=== PATIENT | male | born 1965 | race Caucasian/White ===

== ENCOUNTER → 2019-11-29 08:30 | Outpatient (CLI) | payer OTHER, SELFPAY ==
--- NOTE | ~2019-11-29 | XR_ITS ---
EXAMINATION: XR lumbar spine 2-3V DATE: 11/29/2019 08:45 INDICATION: Dorsalgia, unspecified. TECHNIQUE: 3 views of lumbar spine were obtained. COMPARISON: Lumbar spine radiographs 02/27/2009 FINDINGS: There is 4 degrees levocurvature of lumbar spine. Vertebral body heights are normal. There is mildly decreased disc height at L5-S1. There are small endplate osteophytes at most levels. There is mild facet joint osteoarthritis in lower lumbar spine. IMPRESSION: 1. Mild lumbar spondylosis. Reviewed, dictated and finalized at location B. IMPRESSION: 1. Mild lumbar spondylosis.
== END ==
PROVIDERS: PCP Family Medicine; Visit Provider Physician Assistant
DX: M54.9 Dorsalgia, unspecified (principal); M47.816 Spondylosis without myelopathy or radiculopathy, lumbar region
CPT/HCPCS: 72100

== ENCOUNTER → 2021-07-31 13:49 | Outpatient (CLI) | payer BC, SELFPAY ==
--- NOTE | ~2021-07-31 | MR_ITS ---
EXAMINATION: MR lumbar spine wo con DATE: 07/31/2021 14:18 INDICATION: Lumbar radiculopathy. Low back pain. Left leg pain. TECHNIQUE: Magnetic resonance imaging (MRI) of the lumbar spine was performed without intravenous con trast. Sequences included sagittal T2-weighted FSE, sagittal T2-weighted FS FSE, sagittal T1-weighted FSE, and axial T2-weighted FSE. COMPARISON: Lumbar spine radiographs 07/31/2021 FINDINGS: Bone alignment is normal. Vertebral body heights are normal. There is mildly decreased disc height at L5-S1 with endplate remodeling. The distal spinal cord signal intensity is normal. The con us medullaris is at L1. The following disc levels are specifically discussed: L1-L2: The disc does not extend beyond the endplate margin. There is mild bilateral facet joint osteo arthritis. There is no neural foraminal stenosis. There is no central canal stenosis. L2-L3: The disc does not extend beyond the endplate margin. There is mild bilateral facet joint osteo arthritis. There is no neural foraminal stenosis. There is no central canal stenosis. L3-L4: There is a left foraminal protrusion. There is mild bilateral facet joint osteoarthritis. Ther e is mild left neural foraminal stenosis. There is no central canal stenosis. L4-L5: The disc is bulging and has an annular fissure. There is moderate right and severe left facet joint osteoarthritis. There is moderate right and mild left neural foraminal stenosis. There is mild central canal stenosis. L5-S1: The disc is bulging with superimposed left subarticular zone extrusion with mass effect on lef t S1 nerve root in left lateral recess. There is moderate bilateral facet joint osteoarthritis. There is moderate bilateral neural foraminal stenosis. There is mild central canal stenosis. There is kerrie re stenosis of left lateral recess. IMPRESSION: 1. Moderate lower lumbar spondylosis. Of note, an extrusion at L5-S1 exerts mass effect on left S1 ne rve root. Reviewed, dictated and finalized at location A. IMPRESSION: 1. Moderate lower lumbar spondylosis. Of note, an extrusion at L5-S1 exerts mas s effect on left S1 nerve root.
--- NOTE | ~2021-07-31 | XR_ITS ---
EXAMINATION: XR lumbar spine 6V w bending DATE: 07/31/2021 14:49 INDICATION: Lumbar radiculopathy TECHNIQUE: Anteroposterior, lateral in neutral, flexion and extension, and bilateral oblique views of the lumbar spine, and cone-down lateral view of the lumbosacral junction were obtained. COMPARISON: 11/29/2019 FINDINGS: There is mild/moderate loss of intervertebral disc space height at L5-S1. The vertebral bod y heights are normal. There is no fracture. Bone alignment is normal. No laxity is present with flexi on or extension. There is moderate facet osteoarthritis of the lower lumbar spine. IMPRESSION: 1. Moderate lumbar spondylosis without acute findings. Reviewed, dictated and finalized at location F.
== END ==
PROVIDERS: PCP Family Medicine; Visit Provider Family Medicine
DX: M47.817 Spondylosis without myelopathy or radiculopathy, lumbosacral region (principal); M48.07 Spinal stenosis, lumbosacral region
CPT/HCPCS: 72114; 72148

== ENCOUNTER 2022-02-17 11:39 | Emergency (ER) | payer BC, SELFPAY ==
[2022-02-17 11:44] VITALS: BP 112/71; PULSE 67; RESP 15; TEMP 36.7; O2SAT 98
--- NOTE | 2022-02-17 12:27 | ECG_ITS ---
Measurements Intervals [place] Rate: 72 P: 71 PA: 190 QRS: -22 QRSD: 96 T: 24 QT: 386 QTc: 425 Interpretive Statements SINUS RHYTHM BASELINE ARTIFACT- I, III, AVL, V3 NORMAL ECG NO PREVIOUS ECG AVAILABLE FOR COMPARISON Electronically Signed On 02-17-2022 13:19:32 [employer] by Gonzalo West D.O.
[2022-02-17 12:34] LABS: Glucose Point of Care 162 mg/dl (65-105)
--- NOTE | 2022-02-17 13:02 | ED.WOUNDLAC ---
HPI - Wound/Laceration General Chief Complaint: Wound/Laceration Stated Complaint: left index finger laceration Time Seen by Provider: 02/17/22 11:46 History of Present Illness HPI narrative: 56-year-old male presents the emergency room for evaluation of a laceration to his left index finger. Patient states that he was cutting pineapple this morning for breakfast when the accidentally went through the fruit and cut his finger. Patient states his tetanus is not up-to-date. Patient was unable to control the bleeding prior to arrival. Patient states after he cut himself he became dizzy and lightheaded and had to lay on the floor. Patient states that this occurred a second time on the way here. Patient states that he has a history of vasovagal following injury or the side of his blood. Related Data Allergies Allergy/AdvReac Type Severity Reaction Status Date / Time No Known Allergies Allergy Verified 10/19/21 08:57 Review of Systems Review of Systems: CONSTITUTIONAL: Denies fever, chills, or sweats. EYES: Denies visual changes, redness, or discharge. ENT: Denies rhinorrhea, congestion, sore throat, or otalgia. CARDIOVASCULAR: Denies chest pain, palpitations, or edema. RESPIRATORY: Denies cough or dyspnea. GASTROINTESTINAL: Denies abdominal pain, nausea, vomiting, or diarrhea. GENITOURINARY: Denies dysuria or hematuria. SKIN: Reports laceration left index finger MUSCULOSKELETAL: Denies back pain, joint pain, or myalgia. NEUROLOGIC: Denies headache, numbness, dizziness, or weakness. PSYCHIATRIC: Denies anxiety or depression. PMFSH Past Medical History Medical History Prostate cancer Family History Family History Mother Family history of seizure disorder Patient's mother is Social History Social History Smoking status: Never smoker Alcohol intake: current Exam Narrative: GENERAL: Well-appearing, well-nourished, no physical limitations, and in no acute distress. HEAD: Normocephalic, atraumatic. EYES: Conjunctivae normal, PERRLA and EOMI. CHEST: Clear to auscultation. No respiratory distress. No wheezes rales or rhonchi. HEART: Regular rate and rhythm. No murmur heard. Normal peripheral pulses. BACK: No CVA tenderness; No cervical/thoracic/lumbar tenderness, step-offs, bony abnormality; FROM EXTREMITIES: left index finger: Full range of motion MCP, PIP, DIP joints. Neurovascular is intact distally. No joint laxity SKIN: left index finger: 1.5 cm linear laceration to the palmar surface over the DIP joint. NEURO: No focal deficits. Alert and oriented x3. MAEW. CN's II-XI intact bilaterally, normal gait PSYCH: Cooperative. Normal mood and affect. Course Course Emergency Course: After evaluating patient's lacerated finger, he became pale and diaphoretic. Patient was placed on a stretcher and in Trendelenburg position. Patient became unresponsive for 3 to 4 seconds. After putting patient in Trendelenburg, patient regained consciousness and began talking again. Patient reported that he frequently will a vasovagal when not experiencing pain or at the site of his old blood. EKG and blood sugar were both obtained and were within normal limits. Vital Signs Vital signs: Vital Signs Temperature 36.7 C 02/17/22 11:44 Pulse Rate 67 02/17/22 11:44 Respiratory Rate 15 02/17/22 11:44 Blood Pressure 112/71 02/17/22 11:44 Pulse Oximetry 98 02/17/22 11:44 Temperature 36.7 C 02/17/22 11:44 Pulse Rate 67 02/17/22 11:44 Respiratory Rate 15 02/17/22 11:44 Blood Pressure 112/71 02/17/22 11:44 Pulse Oximetry 98 02/17/22 11:44 Procedures Laceration Laceration 1: Date: 02/17/22 Time: 13:05 Site: hand Side (If applicable): left Size (cm): 1.5 Description: linear
[2022-02-17] MEDS: TETANUS,DIPHTHERIA,AC PERTUSSIS ADULT (0.5 ML) BOOSTRIX IM (14:07)
== END 2022-02-17 14:28 | disposition home or self-care (01) ==
LOC: ANHED 13:31
PROVIDERS: Emergency Provider Nurse Practitioner Family; PCP Family Medicine
DX: S61.211A Laceration without foreign body of left index finger without damage to nail, initial encounter (principal); Z23 Encounter for immunization; R55 Syncope and collapse; Z85.46 Personal history of malignant neoplasm of prostate; Z79.84 Long term (current) use of oral hypoglycemic drugs; W26.0XXA Contact with knife, initial encounter; Y93.G1 Activity, food preparation and clean up
CPT/HCPCS: 12001; 82948; 90471; 90715; 93005; 99283